=== PATIENT | female | born 1970 | race Hispanic/Latino ===

== ENCOUNTER 2022-12-16 10:28 | Emergency (ER) | payer OTHER ==
[2022-12-16] MEDS ORDERED: Lidocaine 2% PF 5 ML VIAL ONE (10:51)
[2022-12-16] MEDS ORDERED: Boostrix 0.5 ML (Tdap) VIAL (>/=7 yrs of age) ONE (12:01)
== END 2022-12-16 12:12 | disposition home or self-care (01) ==
LOC: BURERS 10:28
DX: S61.215A Laceration without foreign body of left ring finger without damage to nail, initial encounter (principal); W26.0XXA Contact with knife, initial encounter; Z23 Encounter for immunization
CPT/HCPCS: 12002; 90471; 90715; J2001

== ENCOUNTER 2023-03-07 15:00 | Emergency (ER) | payer OTHER ==
[2023-03-07] MEDS ORDERED: Dexamethasone 4 MG TAB ONE (15:27)
[2023-03-07] MEDS ORDERED: hydrOXYzine 25 MG TAB ONE (15:27)
== END 2023-03-07 15:30 | disposition home or self-care (01) ==
LOC: BURERS 15:00
DX: L20.9 Atopic dermatitis, unspecified (principal); L29.9 Pruritus, unspecified; I10 Essential (primary) hypertension
CPT/HCPCS: 99282; J8540